=== PATIENT | female | born 1975 | race Hispanic/Latino ===

== ENCOUNTER 2018-08-27 20:56 | Emergency (ER) | payer BC ==
[~2018-08-27] VITALS: Ht 157.5 cm; Wt 79.4 kg
--- NOTE | 2018-08-27 22:20 | Diagnostic Imaging Report ---
EXAMINATION: CXR 2 VIEW - HOPD INDICATION: Mid back pain COMPARISON: None FINDINGS: TUBES and LINES: None. LUNGS: Lungs are well inflated. Lungs are clear. There is no evidence of pneumonia or pulmonary edema. PLEURA: No pleural effusion or pneumothorax. HEART AND MEDIASTINUM: The cardiomediastinal silhouette is unremarkable. BONES AND SOFT TISSUES: No acute osseous lesion. Soft tissues are unremarkable. UPPER ABDOMEN: No free air under the diaphragm. IMPRESSION: No acute thoracic abnormality. Signed by: Dr. Zack Baez M.D. on 08/27/2018 10:16 PM
--- NOTE | 2018-08-27 22:20 | Diagnostic Imaging Report ---
T SPINE 3 VW - HOPD HISTORY: Back pain for about a month COMPARISON: None FINDINGS: Bones: No displaced fracture. Osseous alignment is within normal limits. Joints: The joint spaces are well-maintained. Soft tissues: The soft tissues appear unremarkable. IMPRESSION: No acute radiographic abnormality. Signed by: Dr. Zack Baez M.D. on 08/27/2018 10:17 PM
[2018-08-27 22:35] VITALS: BP 119/88
== END 2018-08-27 22:46 | disposition home or self-care (01) ==
LOC: FSED 20:56
DX: M54.6 Pain in thoracic spine (principal); S23.3XXA Sprain of ligaments of thoracic spine, initial encounter; K21.9 Gastro-esophageal reflux disease without esophagitis
CPT/HCPCS: 71046; 72072; 81025; 99283